=== PATIENT | female | born 1955 | race Caucasian/White ===

== ENCOUNTER 2018-08-26 15:07 | Emergency (ER) | payer BC ==
[2018-08-26] MEDS ORDERED: Diphtheria,Pertussis(Acell),Tetanus Vaccine 0.5 ML Syringe IM ONE (15:26)
--- NOTE | 2018-08-26 15:30 | EDM.PDOC ---
ED HPI GENERAL MEDICAL PROBLEM - General Chief Complaint: General Stated Complaint: NEEDLE POKE ON HAND FROM CALVING Time Seen by Provider: 08/26/18 15:26 Source of Information: Reports: Patient History Limitations: Reports: No Limitations - History of Present Illness INITIAL COMMENTS - FREE TEXT/NARRATIVE: 63-year-old female presents to the ED with a injury to her left radial forearm. Patient states that she was injecting a calf with Banamine --which is an anti- inflammatory medication when the capture back and she lacerated superficially the radial aspect of her distal and mid thumb. The superficial wound. She washed the wound out immediately. The risk of any adverse effects of the medication is just about 0 since it is an anti-inflammatory. Wound care provided with topical antibiotic and a Band-Aid. Tetanus diphtheria and pertussis vaccine will be updated today. Patient reassured. Follow-up if any signs of infection occur. This is felt to be highly unlikely. Onset: Today Onset Date: 08/26/18 Onset Time: 14:00 Duration: Minutes: Location: Reports: Upper Extremity, Left (Left radial thumb.) Quality: Reports: Ache, Burning, Stabbing Severity: Moderate Improves with: Reports: None Worsens with: Reports: None Context: Reports: Trauma (Needle scrape/pull from syringe filled with bandage mean which is a veterinary anti-inflammatory). 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: Other (see below) (None.) - Related Data Allergies Allergy/AdvReac Type Severity Reaction Status Date / Time NSAIDS (Non-Steroidal Allergy Facial Verified 08/26/18 15:14 Anti-Inflamma Swelling Home Meds: Home Meds Albuterol [Ventolin HFA] 1 inh INH DAILY 08/26/18 [History] Past Medical History Respiratory History: Reports: Asthma - Past Surgical History Musculoskeletal Surgical History: Reports: Other (See Below) Other Musculoskeletal Surgeries/Procedures:: rotator cuff surgery Social & Family History - Tobacco Use Smoking Status *Q: Never Smoker Second Hand Smoke Exposure: No - Caffeine Use Caffeine Use: Reports: Coffee - Recreational Drug Use Recreational Drug Use: No - Living Situation & Occupation Living situation: Reports: 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) ED ROS GENERAL - Review of Systems Review Of Systems: See Below Constitutional: Reports: No Symptoms HEENT: Reports: No Symptoms Respiratory: Reports: No Symptoms Cardiovascular: Reports: No Symptoms Endocrine: Reports: No Symptoms GI/Abdominal: Reports: No Symptoms : Reports: No Symptoms Musculoskeletal: Reports: No Symptoms Skin: Reports: No Symptoms Neurological: Reports: No Symptoms Psychiatric: Reports: No Symptoms Hematologic/Lymphatic: Reports: No Symptoms Immunologic: Reports: No Symptoms ED EXAM, GENERAL - Physical Exam Exam: See Below Exam Limited By: No Limitations General Appearance: Alert, WD/WN, No Apparent Distress Extremities: Other (Patient has a 2.5 cm scratch which is very superficial along the radial aspect of her left thumb. It is not actively bleeding and is very superficial. Doesn't appear that any injection of medication likely occurred it's more of a injury from the tip of the needle. Was cleansed and antibiotic topically placed and a Band-Aid.) Psychiatric: Normal Affect, Normal Mood, Anxious (Mildly anxious.) Skin Exam: Warm, Dry, Intact, Normal Color Course - Vital Signs Last Recorded V/S: Last Vital Signs Temp 36.8 C 08/26/18 15:18 Pulse 76 08/26/18 15:18 Resp 16 08/26/18 15:18 BP 141/102 H 08/26/18 15:18 Pulse Ox 97 08/26/18 15:18 - Orders/Labs/Meds Orders: Active Orders 24 hr Category Date Time Status Vaccines to be Administered [RC] PER UNIT ROUTINE Care 08/26/18 15:26 Active Meds: Medications Discontinued Medications Generic Name Dose Route Start Last Admin Trade Name Freq PRN Reason Stop Dose Admin Diphtheria/Tetanus/Acell Pertussis 0.5 ml 08/26/18 15:26 Adacel IM 08/26/18 15:27 .ONCE ONE - Radiology Interpretation Free Text/Narrative:: 63-year-old female presents to the ED with a injury to her left radial thumb that occur well at a branching today. She was going to inject a catheter with an anti-inflammatory used in vetrinary medicine called Banamine. Wound is very superficial and required only cleansing and topical antibiotic management. It appears that no injection of anti-inflammatory medication occurred it's more when abrasion scratch from the barrel or tip of the needle. Offered her tetanus toxoid but she is concerned with it possible containing mercury which to my knowledge it does not. She will therefore be discharged to home. Departure - Departure Time of Disposition: 15:27 Disposition: Home, Self-Care 01 Condition: Fair Clinical Impression: Needle stick injury of finger Qualifiers: Encounter type: initial encounter Qualified Code(s): S61.239A - Puncture wound without foreign body of unspecified finger without damage to nail, initial encounter - Discharge Information *PRESCRIPTION DRUG MONITORING PROGRAM REVIEWED*: Not Applicable *COPY OF PRESCRIPTION DRUG MONITORING REPORT IN PATIENT GODWIN: Not Applicable Instructions: Puncture Wound, [id number] Referrals: Vangie Parra PA-C [Primary Care Provider] - Forms: ED Department Discharge Additional Instructions: Evaluation the emergency room today in regards to needlestick/superficial skin laceration left thumb. Medication that was in the syringe was an anti- inflammatory medication and was not cause any significant problems. Daily cleanse the wound for 3 days and apply topical antibiotic such as bacitracin or Polysporin cover with bandage to keep clean. Tetanus diphtheria and pertussis vaccine was offered but however he refused injection in the ED. Follow-up is required if you develop any signs or symptoms of infection such as increased redness, increased swelling, or obvious pus. - My Orders Last 24 Hours: My Active Orders 08/26/18 15:26 Vaccines to be Administered [RC] PER UNIT ROUTINE - Assessment/Plan Last 24 Hours: My Active Orders 08/26/18 15:26 Vaccines to be Administered [RC] PER UNIT ROUTINE
== END 2018-08-26 15:45 | disposition home or self-care (01) ==
LOC: JD.ED 15:07
DX: S61.032A Puncture wound without foreign body of left thumb without damage to nail, initial encounter (principal); W45.8XXA Other foreign body or object entering through skin, initial encounter; Z79.899 Other long term (current) drug therapy; Z88.8 Allergy status to other drugs, medicaments and biological substances
CPT/HCPCS: 99282

== ENCOUNTER 2019-12-06 09:15 | Emergency (ER) | payer BC ==
[2019-12-06] MEDS ORDERED: Acetaminophen 325 MG Tab PO ONE (09:40)
--- NOTE | 2019-12-06 09:48 | EDM.PDOC ---
ED HPI GENERAL MEDICAL PROBLEM - General Chief Complaint: Trauma Stated Complaint: FALL, RT AND LEFT WRIST INJURY Time Seen by Provider: 12/06/19 09:32 Source of Information: Reports: Patient, RN Notes Reviewed - History of Present Illness INITIAL COMMENTS - FREE TEXT/NARRATIVE: 64 yr old female fell in a barn this morning a few hrs ago. Came down hard on her hands and knees. Bilat wrist pain R more than left. Pain with motion both wrist. Did not hurt head, neck, back or anything else in a meaningful way. - Related Data Allergies Allergy/AdvReac Type Severity Reaction Status Date / Time NSAIDS (Non-Steroidal Allergy Severe Facial Verified 12/06/19 11:48 Anti-Inflamma Swelling Home Meds: Home Meds Albuterol [Ventolin HFA] 1 inh INH DAILY PRN 08/26/18 [History] Hydrocodone/Acetaminophen [[place] 5-325 Tablet] 1 each PO Q6HR PRN #14 tablet 12/06/19 [Rx] Past Medical History Respiratory History: Reports: Asthma - Past Surgical History Musculoskeletal Surgical History: Reports: Other (See Below) Other Musculoskeletal Surgeries/Procedures:: rotator cuff surgery Social & Family History - Caffeine Use Caffeine Use: Reports: Coffee - Living Situation & Occupation Living situation: Reports: 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) Review of Systems - Review of Systems Review Of Systems: See Below Constitutional: Reports: No Symptoms Eyes: Reports: No Symptoms Ears: Reports: No Symptoms Nose: Reports: No Symptoms Mouth/Throat: Reports: No Symptoms Respiratory: Denies: Shortness of Breath, Pleuritic Chest Pain Cardiovascular: Denies: Chest Pain GI/Abdominal: Denies: Abdominal Pain, Vomiting Musculoskeletal: Reports: Joint Pain Skin: Reports: No Symptoms Neurological: Denies: Trouble Speaking, Difficulty Walking, Weakness ED EXAM, GENERAL - Physical Exam Exam: See Below General Appearance: Alert, Mild Distress Eye Exam: Bilateral Eye: Normal Inspection Ear Exam: Bilateral Ear: Auricle Normal Nose: Normal Inspection Head: Atraumatic Neck: Supple Respiratory/Chest: No Respiratory Distress Extremities: Other (moderate tenderness both wrists, pain with motin both wrists, no visible deformity, hands, Upper extrem otherwise nontender) Neurological: Alert, Oriented, No Motor/Sensory Deficits Course - Orders/Labs/Meds Orders: Active Orders 24 hr Category Date Time Status Wrist Comp Min 3V Lt [CR] Stat Exams 12/06/19 09:40 Taken Wrist Comp Min 3V Rt [CR] Stat Exams 12/06/19 09:40 Taken Meds: Medications Discontinued Medications Generic Name Dose Route Start Last Admin Trade Name Naya PRN Reason Stop Dose Admin Acetaminophen 975 mg 12/06/19 09:40 12/06/19 09:50 Tylenol PO 12/06/19 09:41 975 mg NOW ONE Administration - Re-Assessments/Exams Free Text/Narrative Re-Assessment/Exam: 12/06/19 13:42 X rays show fx's of both wrists, have splinted both wrists with Orthoglass. Discharge insr. as documented. Departure - Departure Time of Disposition: 11:46 Disposition: Home, Self-Care 01 Condition: Fair Clinical Impression: Fracture of wrist, closed Qualifiers: Laterality: unspecified laterality Fracture healing: with routine healing - Discharge Information Prescriptions: Hydrocodone/Acetaminophen [[place] 5-325 Tablet] 1 each PO Q6HR PRN #14 tablet PRN Reason: Pain Instructions: Wrist Fracture Treated With Immobilization, [id number] Referrals: Vangie Parra PA-C [Primary Care Provider] - Forms: ED Department Discharge Additional Instructions: Fiberglass wrist splint both wrists. Ice packs and elevation to help keep the swelling down. Tylenol q 6 to 8 hr for mild to moderate pain or 1/2 tablet hydrocodone with 500 mg tylenol q 6 to 8 hr. Prescription has been sent electronically to the [facility] at the [facility] [place]. See Dr Pickering, Orthopedist next week, ideally in about 4 days. Call [phone] for appt. - My Orders Last 24 Hours: My Active Orders 12/06/19 09:40 Wrist Comp Min 3V Lt [CR] Stat Wrist Comp Min 3V Rt [CR] Stat - Assessment/Plan Last 24 Hours: My Active Orders 12/06/19 09:40 Wrist Comp Min 3V Lt [CR] Stat Wrist Comp Min 3V Rt [CR] Stat
--- NOTE | 2019-12-08 11:32 | CR ---
Right wrist: 4 views of the right wrist were obtained. Comparison: Displaced distal radial fracture is seen through the metaphysis. Displacement measures about 7-8 mm. Posterior impaction is also seen. Soft tissue swelling is noted. No additional fracture or other abnormalities appreciated. Impression: 1. Displaced and impacted distal right radial fracture. 2. Soft tissue swelling. Diagnostic code #3 This report was dictated in MDT I agree with preliminary report from [facility], finalized on 12/06/19, 1:33 PM Central Daylight Time
--- NOTE | 2019-12-08 11:32 | CR ---
Left wrist: 3 views of the left wrist are obtained. Comparison: No prior left wrist study is available. Distal radius shows evidence of fracture through the metaphysis. Posterior impaction is seen causing dorsal tilt of the distal radial articular margin. Osteopenia is present. No additional fracture or other bony abnormality is seen. Impression: 1. Posteriorly impacted distal left radial fracture. Diagnostic code #3 This report was dictated in MDT I agree with preliminary report from [facility], finalized on 12/06/19, 1:32 PM Central Daylight Time
== END 2019-12-06 12:10 | disposition home or self-care (01) ==
LOC: JD.ED 09:15
DX: S52.501A Unspecified fracture of the lower end of right radius, initial encounter for closed fracture (principal); S52.502A Unspecified fracture of the lower end of left radius, initial encounter for closed fracture; J45.909 Unspecified asthma, uncomplicated; Z88.6 Allergy status to analgesic agent; Z79.899 Other long term (current) drug therapy; W19.XXXA Unspecified fall, initial encounter; Y92.71 Barn as the place of occurrence of the external cause
CPT/HCPCS: 29125; 73110; 99283; A9270

== ENCOUNTER 2019-12-15 07:53 | Day surgery (SDC) | payer BC ==
[~2019-12-15 07:53] MED LIST: Lactated Ringers 1,000 ML IV SCH; Lidocaine 1%/Sod Bicarbonate in NS 8.4% 1 ML Syringe IDERM PRN; Sodium Chloride 0.9% 10 ML Syringe FLUSH PRN
[2019-12-15] MEDS ORDERED: Scopolamine 1.5 MG Transdermal Patch TRDERM PRN (08:24)
--- NOTE | 2019-12-15 08:25 | PCM.PREANE ---
Preanesthetic Assessment - Anesthesia/Transfusion/Family Hx Anesthesia History: Prior Anesthesia Reaction Type of Anesthesia Reaction: Excessive Nausea/Vomiting Family History of Anesthesia Reaction: No Transfusion History: No Prior Transfusion(s) Intubation History: Unknown - Review of Systems General: No Symptoms Pulmonary: No Symptoms (History of asthma-last used inhaler 4 days ago/ quit smoking 1982-smoked less than 1ppd for 10 years) Cardiovascular: No Symptoms, Dyspnea on Exertion Gastrointestinal: No Symptoms (History of IBS) Neurological: No Symptoms, Headache (migraines in the past), Tingling (Right hand) Other: Reports: Easy Bruising, Thyroid Problems (Hypothyroidism), Sinus Problem (allergic rhinitis) - Physical Assessment NPO Status Date: 12/14/19 NPO Status Time: 20:00 Vital Signs: HR: 82 B/P: 146/72 Resp: 20 Temp: 98.4 Sat: 96% Height: 1.65 m Weight: 73 kg ASA Class: 2 Mental Status: Alert & Oriented x3 Airway Class: Mallampati = 2 Dentition: Reports: Normal Dentition, Caries Thyro-Mental Finger Breadths: 3 Mouth Opening Finger Breadths: 3 ROM/Head Extension: Full Lungs: Clear to Auscultation, Normal Respiratory Effort Cardiovascular: Regular Rate, Regular Rhythm, No Murmurs - Lab Values: Laboratory Last Values SARS-CoV-2 (PCR) Not detected (NOT DETECT) 12/11/19 12:00 MRSA (PCR) Negative 12/11/19 11:13 - Imaging/EKG Impressions: EKG:SR Rate=90 - Allergies Allergies/Adverse Reactions: Allergies Allergy/AdvReac Type Severity Reaction Status Date / Time NSAIDS (Non-Steroidal Allergy Severe Facial Verified 12/12/19 15:17 Anti-Inflamma Swelling - Anesthesia Plan Pre-Op Medication Ordered: None - Acknowledgements Anesthesia Type Planned: General Anesthesia, MAC Pt an Appropriate Candidate for the Planned Anesthesia: Yes Alternatives and Risks of Anesthesia Discussed w Pt/Guardian: Yes Pt/Guardian Understands and Agrees with Anesthesia Plan: Yes PreAnesthesia Questionnaire HEENT History: Reports: Allergic Rhinitis Cardiovascular History: Reports: None Respiratory History: Reports: Asthma Gastrointestinal History: Reports: Hiatal Hernia Genitourinary History: Reports: None FAMILY PRESERVATION WORKER History: Reports: None Musculoskeletal History: Reports: Osteoporosis, Other (See Below) Other Musculoskeletal History: right wrist osteoporosis Neurological History: Reports: None Psychiatric History: Reports: None Endocrine/Metabolic History: Reports: None Hematologic History: Reports: None Oncologic (Cancer) History: Reports: None Dermatologic History: Reports: None - Past Surgical History Head Surgeries/Procedures: Reports: None HEENT Surgical History: Reports: Tonsillectomy Cardiovascular Surgical History: Reports: None Respiratory Surgical History: Reports: None GI Surgical History: Reports: None Female Surgical History: Reports: None Male Surgical History: Reports: None Endocrine Surgical History: Reports: None Neurological Surgical History: Reports: None Musculoskeletal Surgical History: Reports: Other (See Below) Other Musculoskeletal Surgeries/Procedures:: rotator cuff surgery Oncologic Surgical History: Reports: None - SUBSTANCE USE Smoking Status *Q: Former Smoker Recreational Drug Use History: No - HOME MEDS Home Medications: Home Meds Albuterol [Ventolin HFA] 1 inh INH DAILY PRN 08/26/18 [History] Acetaminophen [Tylenol Extra Strength] 500 mg PO Q6H PRN 12/12/19 [History] Ascorbate Calcium [Vitamin C] 500 mg PO DAILY 12/12/19 [History] Folic Acid 0.8 mg PO DAILY 12/12/19 [History] Lactobacillus Acidophilus [Probiotic] 1 cap PO DAILY 12/12/19 [History] Hydrocodone/Acetaminophen [[place] 5-325 Tablet] 1 - 2 each PO Q6HR PRN #15 tablet 12/15/19 [Rx] - CURRENT (IN HOUSE) MEDS Current Meds: Current Medications Lactated Ringer's (Ringers, Lactated) 1,000 mls @ 125 mls/hr IV ASDIRECTED DIANE Stop: 12/15/19 23:00 Lidocaine/Sodium Bicarbonate (Buffered Lidocaine 1% In Ns 8.4%) 0.25 ml IDERM ONETIME PRN PRN Reason: Prior to IV Start Stop: 12/15/19 18:00 Sodium Chloride (Saline Flush) 10 ml FLUSH ASDIRECTED PRN PRN Reason: Keep Vein Open Stop: 12/15/19 18:00
[2019-12-15] MEDS ORDERED: Ondansetron 4 MG/2 ML SDV ONE (09:45)
[2019-12-15] MEDS ORDERED: Midazolam 1 MG/ML 2 ML SDV ONE (09:46)
[2019-12-15] MEDS ORDERED: Lidocaine 1% 4 ML ONE (09:46)
[2019-12-15] MEDS ORDERED: Propofol 200 MG/20 ML SDV ONE (09:46)
[2019-12-15] MEDS ORDERED: fentaNYL 250 MCG/5 ML SDV ONE (09:46)
[2019-12-15] MEDS ORDERED: fentaNYL 100 MCG/2 ML SDV IVPUSH PRN (11:01)
--- NOTE | 2019-12-15 11:02 | PCM.POSTAN ---
POST ANESTHESIA ASSESSMENT - MENTAL STATUS Mental Status: Alert, Oriented - VITAL SIGNS Vital Signs: Last Vital Signs Temp 36.9 C 12/15/19 08:00 Pulse 82 12/15/19 08:00 Resp 20 12/15/19 08:00 BP 146/72 H 12/15/19 08:00 Pulse Ox 96 12/15/19 08:00 - RESPIRATORY Respiratory Status: Respiratory Rate WNL, Airway Patent, O2 Saturation Stable, Supplemental Oxygen - CARDIOVASCULAR CV Status: Pulse Rate WNL, Blood Pressure Stable - GASTROINTESTINAL GI Status: No Symptoms - PAIN Pain Score: 0 - POST OP HYDRATION Hydration Status: Adequate & Stable - OBSERVATIONS Free Text/Narrative:: no anesthesia complications noted
--- NOTE | 2019-12-15 11:40 | CR ---
Right wrist: 6 fluoroscopic spot views were obtained of the right wrist. Study obtained utilizing C-arm device. Comparison: Prior right wrist exam of 12/06/19. Study shows reduction as well as fixation with fiberglass cast. Lateral view shows slight posterior impaction remaining. Fluoroscopy time given as 6.2 seconds. Impression: 1. Procedural study as noted above. Diagnostic code #2 This report was dictated in MDT
[2019-12-15] MEDS ORDERED: Acetaminophen/HYDROcodone 325-5 MG Tab PO PRN (11:41)
--- NOTE | 2019-12-15 11:55 | PCM48HPAN ---
Post Anesthesia Note - EVALUATION WITHIN 48HRS OF ANESTHETIC Vital Signs in Normal Range: Yes Patient Participated in Evaluation: Yes Respiratory Function Stable: Yes Airway Patent: Yes Cardiovascular Function Stable: Yes Hydration Status Stable: Yes Pain Control Satisfactory: Yes Nausea and Vomiting Control Satisfactory: Yes Mental Status Recovered: Yes Vital Signs: Last Vital Signs Temp 36.7 C 12/15/19 11:25 Pulse 69 12/15/19 11:40 Resp 14 12/15/19 11:40 BP 136/69 12/15/19 11:40 Pulse Ox 97 12/15/19 11:48 - COMMENTS/OBSERVATIONS Free Text/Narrative:: no anesthesia complications noted
--- NOTE | 2019-12-23 07:50 | PCM.OPNOTE ---
- General Post-Op/Procedure Note Date of Surgery/Procedure: 12/15/19 Operative Procedure(s): closed reduction with short arm casting right distal radius fracture Pre Op Diagnosis: right distal radius fracture Post-Op Diagnosis: Same Anesthesia Technique: MAC Primary Surgeon: Neo Pickering Anesthesia Provider: Barber Patrick Soft Crab Shedder: Nayeli Serrano EBL in mLs: 0 Complications: None Condition: Good
--- NOTE | 2019-12-23 10:23 | OR ---
DATE OF OPERATION: 12/15/2019 SURGEON: Neo Pickering MD OPERATION PERFORMED: Closed reduction with short-arm casting of right distal radius and ulnar fracture. PREOPERATIVE DIAGNOSIS: Right distal radius and ulnar fracture. POSTOPERATIVE DIAGNOSIS: Right distal radius and ulnar fracture. ANESTHESIA: MAC sedation. ANESTHESIA PROVIDER: Barber Patrick CRNA FAMILY PRESERVATION CASEWORKER: Nayeli Serrano LPN. ESTIMATED BLOOD LOSS: Not applicable. COMPLICATIONS: None. CONDITION: Stable. DESCRIPTION OF PROCEDURE: The patient was identified in the preoperative holding area. Proper site was marked and identified by the surgeon. The patient was taken back to the operating theater where after adequate anesthesia, the C-arm fluoroscopy was utilized showing a severely displaced right distal radius fracture. Time-out was performed, and at this time, a closed reduction maneuver was done of the right distal radius. It was found to be in near anatomic alignment on both AP, lateral and 23-degree lateral views. At this time, after this was completed, under cast padding was applied and then a fiberglass short-arm cast was applied and was molded with 3-point molding until it had set. C-arm fluoroscopy was then again utilized showing it to be adequately reduced on AP and lateral views. The patient was sent to the PACU and will follow up in clinic in roughly 2 weeks' time for repeat radiographs. NICOLE /[id number]
== END 2019-12-15 12:45 | disposition home or self-care (01) ==
LOC: JD.SDS 07:53
PROVIDERS: ATTEND Orthopaedic Surgery
DX: S52.501A Unspecified fracture of the lower end of right radius, initial encounter for closed fracture (principal); S52.601A Unspecified fracture of lower end of right ulna, initial encounter for closed fracture; M81.0 Age-related osteoporosis without current pathological fracture; E03.9 Hypothyroidism, unspecified; Z01.812 Encounter for preprocedural laboratory examination; Z88.8 Allergy status to other drugs, medicaments and biological substances; Z20.828 Contact with and (suspected) exposure to other viral communicable diseases; J45.909 Unspecified asthma, uncomplicated; Z87.891 Personal history of nicotine dependence; W19.XXXA Unspecified fall, initial encounter; Y92.009 Unspecified place in unspecified non-institutional (private) residence as the place of occurrence of the external cause
CPT/HCPCS: 25605; 76000; 87635; 87641; 93005; A9270; J2001; J2250; J2405; J2704; J3010; J7120; 01820; U0002

== ENCOUNTER 2021-07-24 16:18 | Emergency (ER) | payer BC | END 2021-07-24 19:03 | disposition home or self-care (01) | LOC: JD.ED 16:18 | DX: R07.9 Chest pain, unspecified (principal); R06.09 Other forms of dyspnea; J45.909 Unspecified asthma, uncomplicated; Z87.891 Personal history of nicotine dependence; Z79.899 Other long term (current) drug therapy; Z88.6 Allergy status to analgesic agent | CPT/HCPCS: 36415; 71046; 71046-26; 80053; 83880; 84484; 85025; 85379; 93005; 93010; 99284; 99285-25 ==